=== PATIENT | female | born 1985 | race American Indian/Alaskan Native ===

== ENCOUNTER 2016-09-25 11:00 | Outpatient (CLI) | payer MEDICAID ==
[2016-09-25 11:32] VITALS: BP 117/74
[2016-09-25] MEDS ORDERED: LACTATED RINGERS 500 ML IV ONE (11:39)
[2016-09-25 12:13] LABS: Bilirubin,Urine NEG (Negative); Blood,Urine NEG (Negative); Ketones,Urine TR mg/dL (Negative); Leukocyte Esterase,Urine SM (Negative); Mucus,Urine FEW /HPF; Nitrite,Urine NEG (Negative); Protein,Urine <15 mg/dL mg/dL (Negative); Urobilinogen,Urine < 2.0 mg/dL (<2.0)
--- NOTE | 2016-09-26 13:12 | Ultrasound Report ---
OB LIMITED Technique: Transabdominal ultrasound with Doppler interrogation. Gestation: Single Position: Cephalic Amniotic Fluid: Normal SHANTANU = 8.3 cm Heart Rate: 129 BPM
--- NOTE | 2016-09-26 13:12 | Ultrasound Report ---
BIOPHYSICAL PROFILE: Technique: Transabdominal ultrasound with Doppler interrogation. 2 - breathing movements 2 - movements 2 - posture and tone 2 - Qualitative amniotic fluid volume 8 - TOTAL SCORE OF POSSIBLE 8 Heart Rate (bpm) 150
== END 2016-09-25 13:19 | disposition home or self-care (01) ==
LOC: TRG 11:00
PROVIDERS: ATTEND Obstetrics & Gynecology Gynecology
DX: O47.03 False labor before 37 completed weeks of gestation, third trimester (principal); Z3A.32 32 weeks gestation of pregnancy
CPT/HCPCS: 76815; 76819; 81001; J7120

== ENCOUNTER 2016-11-12 05:47 | Inpatient (IN) | payer MEDICAID ==
[2016-11-12] MEDS ORDERED: PEPCID IV ONE (06:00)
[2016-11-12] MEDS ORDERED: REGLAN IV ONE (06:00)
[2016-11-12] MEDS ORDERED: BICITRA PO ONE (06:00)
[2016-11-12] MEDS ORDERED: PITOCin/NS 20 UNIT/1000ML DRIP 20 UNITS/1,000 ML BAG IV SCH ×2 (06:00→12:00)
[2016-11-12] MEDS: LACTATED RINGERS 1,000 ML IV SCH ×2 (06:12→08:58)
[2016-11-12 06:44] LABS: Hematocrit 32.8 % (30.3-42.9); Hemoglobin 10.5 gm/dl (10.1-14.3); Mean Corpuscular HGB Conc 32 % (30-34); Mean Corpuscular Volume 78 fl (79-97); Platelet Count 209 K/mm3 (140-440); Red Blood Count 4.22 M/mm3 (3.65-5.03); White Blood Count 6.8 K/mm3 (4.5-11.0)
[2016-11-12 06:57] LABS: Mean Corpuscular Hemoglobin 25 pg (28-32); Red Cell Distribution Width 25.1 % (13.2-15.2)
[2016-11-12] MEDS ORDERED: ANCEF/STERILE WATER 2 GM/20 ML IV NR (07:00)
[2016-11-12] MEDS ORDERED: MORPHINE ONE (07:22)
[2016-11-12] MEDS ORDERED: NACL 0.9% 100 ML ONE ×2 (07:23→10:13)
[2016-11-12] MEDS ORDERED: NEO SYNEPHRINE ONE ×2 (07:24→10:13)
--- NOTE | 2016-11-12 07:49 | Anesthesia Consultation ---
Anesthesia Consult and Med Hx Date of service: 11/12/16 - Airway Anesthetic Teeth Evaluation: Chipped (#7) ROM Head & Neck: Adequate Mental/Hyoid Distance: Adequate Mallampati Class: Class II Intubation Access Assessment: Probably Good - Pulmonary Exam CTA: Yes - Cardiac Exam Cardiac Exam: RRR - Pre-Operative Health Status ASA Pre-Surgery Classification: ASA2 Proposed Anesthetic Plan: Spinal - Pulmonary Hx Smoking: No (denies) Hx Asthma: Yes (childhood asthma- does have an inhaler) COPD: No Hx Pneumonia: No - Cardiovascular System Hx Hypertension: No Hx Heart Murmur: Yes - Central Nervous System Hx Seizures: No Hx Back Pain: Yes Hx Psychiatric Problems: No - Gastrointestinal Hx Gastroesophageal Reflux Disease: Yes - Endocrine Hx Renal Disease: No Hx End Stage Renal Disease: No Hx Hypothyroidism: No Hx Hyperthyroidism: No - Hematic Hx Anemia: Yes Hx Sickle Cell Disease: No - Other Systems Hx Alcohol Use: No Hx Obesity: Yes
--- NOTE | 2016-11-12 07:50 | Anesthesia Day of Surgery ---
Anesthesia Day of Surgery - Day of Surgery Patient Examined: Yes Patient H&P Reviewed: Yes Patient is NPO: Yes
[2016-11-12 08:46] LABS: Anisocytosis 2+; Basophils % (Manual) 0 % (0.0-1.8); Blastocytes % (Manual) 0 %; Hypochromasia 1+
[2016-11-12 08:47] LABS: Diff Status Complete; Elliptocytes Rare; Large Platelets Few
--- NOTE | 2016-11-12 09:35 | History and Physical Report ---
History of Present Illness Date of examination: 11/12/16 Date of admission: 11/12/16 05:47 Chief complaint: She is here for a third History of present illness: A 30-year-old at 39+ weeks presents for 3rd repeat , [facility] patient. course complicated by obesity and IUGR otherwise unremarkable. 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 denies: smoking, alcohol abuse, prescription drug abuse, IV drug use - Obstetrical History Expected Date of Delivery: 11/19/16 Actual Gestation: 39 Week(s) 0 Day(s) : 3 Para: 2 Medications and Allergies Allergies Allergy/AdvReac Type Severity Reaction Status Date / Time No Known Allergies Allergy Unverified 12/23/14 07:43 Home Medications Medication Instructions Recorded Confirmed Last Taken Type Vit W-Ca,Fe,FA(<1 mg) 1 each PO QDAY #30 tablet 04/10/16 11/12/1611/04 10:00 Rx [ Vitamins] Active Meds: Active Medications Cefazolin Sodium (Ancef/Sterile Water 2 Gm/20 Ml) 2 gm IV PREOP NR Stop: 11/12/16 23:59 Lactated Ringer's (Lactated Ringers) 1,000 mls @ 2,250 mls/hr IV PREOP EMILI Stop: 11/13/16 06:27 Last Admin: 11/12/16 08:58 Dose: 2,250 mls/hr Oxytocin/Sodium Chloride (Pitocin/Ns 20 Unit/1000ml Drip) 20 units in 1,000 mls @ 0 mls/hr IV TITR EMILI PRN Reason: As Directed Review of Systems Constitutional: no fever, no chills, no weakness Cardiovascular: no chest pain, no orthopnea, no rapid/irregular heart beat, no edema, no syncope, no dyspnea on exertion, no high blood pressure Respiratory: no cough with sputum, no shortness of breath, no dyspnea on exertion Gastrointestinal: no abdominal pain, no nausea, no vomiting Genitourinary: no vaginal bleeding, no vaginal discharge, no leakage of fluid - Vital Signs Vital signs: Vital Signs Temp Pulse Resp BP 98.2 F 93 H 18 119/65 11/12/16 06:05 11/12/16 06:05 11/12/16 06:05 11/12/16 06:05 Temp Pulse Resp BP Pulse Ox 98.2 F 93 H 18 119/65 11/12/16 06:05 11/12/16 06:05 11/12/16 06:05 11/12/16 06:05 - Physical Exam Cardiovascular: Regular rate, Normal S1, Normal S2 Lungs: Positive: Clear to auscultation, Normal air movement Abdomen: Positive: normal appearance, soft. Negative: distention, tenderness, guarding, rigidity Genitourinary (Female): Positive: normal external genitalia Uterus: Positive: enlarged (EFW ~ 3500) Adnexa: both: normal Extremities: Positive: normal - Obstetrical FHR: category 1 Results Result Diagrams: 11/12/16 06:10 Abnormal lab results 11/12/16 Range/Units 06:10 MCV 78 L (79-97) fl MCH 25 L (28-32) pg RDW 25.1 H (13.2-15.2) % Seg Neuts % (Manual) 80.0 H (40.0-70.0) % All other labs normal. Assessment and Plan A: 30-year-old at 39 weeks here for repeat -Category 1 tracing P: -Has been consented -Proceed to the OR once available - Patient Problems (1) 39 weeks gestation of Current Visit: No Status: Acute (2) History of 2 sections Current Visit: Yes Status: Acute
[2016-11-12] MEDS ORDERED: ANCEF/NS 1 GM/50 ML 1 GM/50 ML BAG IV ONE (09:36)
[2016-11-12] MEDS ORDERED: LACTATED RINGERS 1,000 ML ONE (10:15)
[2016-11-12] MEDS ORDERED: NACL 0.9% IR ONE (10:20)
[2016-11-12] MEDS ORDERED: WATER FOR IRRIG STERILE IR ONE (10:20)
[2016-11-12] MEDS ORDERED: SUBLIMAZE ONE (10:59)
[2016-11-12] MEDS ORDERED: VERSED IV ONE (10:59)
[2016-11-12] MEDS ORDERED: KETALAR ONE (11:01)
[2016-11-12] MEDS ORDERED: NARCAN 0.4 MG/1 ML IV PRN ×2 (11:41→11:54)
[2016-11-12] MEDS ORDERED: TYLENOL PO PRN (11:41)
[2016-11-12] MEDS ORDERED: MILK OF MAGNESIA PO PRN (11:41)
[2016-11-12] MEDS ORDERED: SENOKOT PO PRN (11:41)
[2016-11-12] MEDS ORDERED: TUCKS PAD TP PRN (11:41)
[2016-11-12] MEDS ORDERED: ZOFRAN IV PRN ×2 (11:41→11:54)
[2016-11-12] MEDS ORDERED: ANUCORT-HC PR PRN (11:41)
[2016-11-12] MEDS ORDERED: MYLICON PO PRN (11:41)
--- NOTE | 2016-11-12 11:41 | Operative Report ---
Operative Report Operative Report: DATE: 11/12/2016 PREOPERATIVE DIAGNOSIS: 30-year-old at 39 weeks, 2 prior desires repeat, obesity, history of adhesions POSTOP DIAGNOSIS: As above NAME OF PROCEDURE: 3rd Repeat low transverse section Adhesiolysis SURGEON: MARY BREEN MD [facility] [] ANESTHESIA: Spinal EBL: 1000 mL PATHOLOGY SPECIMEN: None URINE OUTPUT: 25 mL FINDINGS: Female infant in cephalic presentation, time of delivery was 10:25, weight was 6 lbs. 1 oz. or 2765 g, Apgars 8/9, significant adhesion of the uterus to the anterior abdominal wall, omental adhesions to the uterus and anterior abdominal wall, serosal surface of the uterus anteriorly was denuded during dissection and freeing of the uterus from the anterior abdominal wall, serosal surface with significantly oozing controlled with sutures, Tisseel and Surgicel Normal uterus structurally, ovaries and tubes bilaterally DESCRIPTION OF PROCEDURE: She was taken to the operating room where she was prepped and draped in a sterile fashion, she was placed in the dorsal supine position. Pfannenstiel incision was performed through her prior incisional scar which was carried through to underlying rectus fascia which was on the midline. The fascial incision was extended laterally with use of Garcia scissors , the anterior leaf was then grasped with Kochers forceps elevated dissected sharply and bluntly off the underlying structure assumed to be the rectus. In a similar fashion inferior leaf was grasped elevated dissected sharply and bluntly off the underlying structure. Was then it was apparent this was the uterus. Examination showed uterus adhesed to the anterior abdominal wall in the lower segment area. An omental adhesions also noted to the uterus and anterior abdominal wall. Adhesiolysis was then performed freeing up the uterus from the anterior abdominal wall and from omental adhesions. A bladder blade was placed in the patient's pelvic cavity; bladder flap could not be created. A hysterotomy incision was then performed in the lower segment with clear amniotic fluid noted, hysterotomy incision was extended laterally with the use of fingers manually. in cephalic presentation was delivered in the usual manner; cord was clamped and cut was handed over to waiting nursery staff. The placenta was then delivered manually intact, the uterus was exteriorized cleared of all clots and debris. Hysterotomy incision was then closed in a running locked fashion with 0 Vicryl on a CTX; using the same suture was imbricate the initial layer. Interrupted [id number] stitches were used to obtain hemostasis. Then spent some time reapproximating the denuded serosal cover. Numerous interrupted [id number] stitches were used to control bleeding on the serosal surface. Tisseel and Surgicel were then applied over the oozing sites to control bleeding. Uterus was then returned to the patient's pelvic cavity; note that copiously irrigation was used to clear the gutters of all clots and debris from the posterior surface of the uterus prior to placement of hemostatic agents. Interceed was then applied into the pelvic cavity as a means to prevent future adhesions. The peritoneal layer could not be closed. The fascia was closed in a running fashion with 0 Vicryl and tied in the opposite side. The subcutaneous layer was irrigated and then reapproximated with interrupted figure -of-eight stitches. The skin was closed in a subcuticular manner with 4-0 Vicryl. She tolerated the procedure well lap and instrument counts were correct 2 she did receive 2 g of Ancef prior to incision she is transferred to PACU in stable condition thank you.
[2016-11-12] MEDS ORDERED: PHENERGAN PR PRN (11:54)
[2016-11-12] MEDS ORDERED: PHENERGAN PO PRN (11:54)
[2016-11-12] MEDS ORDERED: SODIUM CHLORIDE FLUSH SYRINGE 10 ML IV NR (12:00)
[2016-11-12] MEDS: DILAUDID IV PRN ×2 (12:11→12:24)
--- NOTE | 2016-11-12 12:41 | Post Anesthesia Evaluation ---
- Post Anesthesia Evaluation Patient Participated: Yes Airway Patent: Yes Stable Respiratory Function: Yes Temp > 96.8F: Yes Pain Manageable: Yes Adequeate Hydration: Yes Anesthesia Complications: No Block Receding Appropriately: Not Applicable
[2016-11-12] MEDS: PERCOCET 5/325 PO PRN ×2 (16:49→22:52)
[2016-11-12] MEDS: LANSINOH TP PRN (16:53)
[2016-11-12 18:42] LABS: Hematocrit 29.4 % (30.3-42.9); Hemoglobin 9.1 gm/dl (10.1-14.3)
[2016-11-12] MEDS: D5LR 1,000 ML IV SCH (20:11)
[2016-11-12 21:06] LABS: Hematocrit 27.1 % (30.3-42.9); Hemoglobin 8.6 gm/dl (10.1-14.3)
[2016-11-12] MEDS: MOTRIN PO PRN (21:34)
[2016-11-12 23:51] LABS: Hemoglobin 8.7 gm/dl (10.1-14.3)
[2016-11-13] MEDS: D5LR 1,000 ML IV SCH (04:26)
[2016-11-13] MEDS: PERCOCET 5/325 PO PRN ×4 (04:30→23:02)
[2016-11-13] MEDS ORDERED: BOOSTRIX IM ONE (06:15)
--- NOTE | 2016-11-13 07:15 | Progress Note ---
Assessment and Plan POD# 1 s/p 3rd rpt C-S -Doing well P: -Continue routine post op care -Anticipate discharge in 24-48 hours - Patient Problems (1) 39 weeks gestation of Current Visit: No Status: Acute (2) History of 2 sections Current Visit: Yes Status: Acute (3) S/P repeat low transverse Current Visit: No Status: Acute Subjective - Subjective Date of service: 11/13/16 Principal diagnosis: POD# 1 Interval history: Patient seen and examined, stable well. No fever or chills, no shortness of breath, has incisional pain, no nausea vomiting, no flatus, has not yet ambulated Patient reports: appetite normal, voiding normally, pain well controlled (has appropriate junito-incisional pain), no flatus, no ambulating normally, no nauseated : doing well Objective - Vital Signs Latest vital signs: Vital Signs Temp Pulse Pulse Pulse Resp BP BP 11/13/16 04:25 98.6 F 74 16 11/13/16 00:00 98.6 F 66 16 11/12/16 19:30 98.6 F 71 16 11/12/16 16:50 97.6 F 77 18 114/62 11/12/16 13:00 97.7 F 91 H 20 11/12/16 12:40 97.2 F L 18 115/50 11/12/16 12:10 97.2 F L 18 115/50 11/12/16 11:55 19 124/70 11/12/16 11:50 98 H 18 120/67 11/12/16 11:45 97.6 F 94 H 18 113/71 BP Pulse Ox 11/13/16 04:25 111/59 11/13/16 00:00 110/58 11/12/16 19:30 112/48 11/12/16 16:50 11/12/16 13:00 127/66 11/12/16 12:40 99 11/12/16 12:10 99 11/12/16 11:55 99 11/12/16 11:50 98 11/12/16 11:45 98 Intake and Output 11/12/16 11/13/16 11/13/16 22:59 06:59 14:59 Intake Total 375 1250 Output Total 700 600 Balance -325 650 Intake: IV 375 1250 D5lr 1,000 ml @ 125 mls/ 250 1250 hr IV DIRECT EMILI Rx#: [id number] PITOCin/NS 20 UNIT/1000ML 125 DRIP 20 units In 1,000 ml @ 250 mls/hr IV DIRECT EMILI Rx#:[id number] Oral 0 Output: Urine 700 600 Indwelling Catheter 700 0 Void 600 Other: Total, Intake Amount 0 Total, Output Amount 300 600 Voiding Method Indwelling Catheter # Voids Indwelling Catheter 0 0 Void 1 - Exam Abdomen: Present: normal appearance, soft, normal bowel sounds. Absent: distention, tenderness, guarding Uterus: Absent: tenderness Extremities: Present: normal Incision: Present: dressed - Labs Labs: Abnormal lab results 11/12/16 11/12/16 11/12/16 Range/Units 06:10 18:20 20:48 Hgb 9.1 L 8.6 L (10.1-14.3) gm/dl Hct 29.4 L 27.1 L (30.3-42.9) % Seg Neuts % (Manual) 80.0 H (40.0-70.0) % 11/12/16 Range/Units 23:35 Hgb 8.7 L (10.1-14.3) gm/dl Hct 26.0 L (30.3-42.9) % Seg Neuts % (Manual) (40.0-70.0) %
[2016-11-13] MEDS: LANSINOH TP PRN (09:26)
[2016-11-13] MEDS: MOTRIN PO PRN ×3 (09:26→23:03)
[2016-11-13] MEDS: PRENATAL VITAMIN PO SCH (11:10)
[2016-11-13] MEDS: FEOSOL PO SCH (11:11)
[2016-11-14] MEDS: PERCOCET 5/325 PO PRN ×3 (05:07→18:13)
[2016-11-14] MEDS: MOTRIN PO PRN ×3 (05:07→18:14)
--- NOTE | 2016-11-14 08:59 | Progress Note ---
Assessment and Plan POD# 2 s/p 3rd rpt C-S -Doing well P: -Continue routine post op care -Anticipate discharge in 24-48 hours - Patient Problems (1) 39 weeks gestation of Current Visit: No Status: Acute (2) History of 2 sections Current Visit: Yes Status: Acute (3) S/P repeat low transverse Current Visit: No Status: Acute Subjective - Subjective Date of service: 11/14/16 Principal diagnosis: POD# 2 Interval history: Patient seen and examined, stable well. No fever or chills, no shortness of breath, has incisional pain, no nausea vomiting, no flatus, has not yet ambulated Patient reports: appetite normal, voiding normally, pain well controlled, flatus , ambulating normally, no dizzy ambulation, no nauseated : doing well Objective - Vital Signs Latest vital signs: Vital Signs Temp Pulse Resp BP 11/14/16 05:07 18 11/14/16 00:45 97.7 F 96 H 20 125/55 11/13/16 23:03 18 11/13/16 23:02 18 11/13/16 17:05 97.5 F L 101 H 20 113/55 Intake and Output 11/13/16 11/14/16 11/14/16 22:59 06:59 14:59 Intake Total 480 360 Balance 480 360 Intake: Oral 480 Intake, Free Water 360 Other: Total, Intake Amount 240 Voiding Method Toilet Toilet # Voids Void 1 2 - Exam Abdomen: Present: normal appearance, soft. Absent: distention, tenderness, guarding, rigidity Uterus: Present: firm, fundal height below umbilicus
--- NOTE | 2016-11-14 09:02 | Discharge Summary ---
Providers - Providers Date of Admission: 11/12/16 05:47 Date of discharge: 11/15/16 Attending physician: LIZA RIZO Primary care physician: LIZA RIZO Hospitalization Reason for admission: section Delivery: Procedure: repeat low transverse (3rd Repeat) Procedure details: Patient was significant adhesions. Patient will oozing erosion of the serosa of the uterus Incision: dry, intact Other procedures: none complications: none Discharge diagnosis: IUP at term delivered [place] baby: female Hospital course: Uncomplicated hospital course Condition at discharge: Good Disposition: DISCHARGED TO HOME OR SELFCARE - Discharge Diagnoses (1) S/P repeat low transverse Status: Acute (2) 39 weeks gestation of Status: Acute (3) History of 2 sections Status: Acute (4) Anemia Status: Acute Qualifiers: Anemia type: A Iron deficiency anemia type: I Vitamin B12 deficiency anemia type: V Folate deficiency anemia type: F Bone marrow failure anemia type: B Hemolytic anemia type: H Other causes of anemia: acute posthemorrhagic Qualified Code(s): D62 - Acute posthemorrhagic anemia Plan - Discharge Medications Prescriptions: Ibuprofen [Motrin 600 MG tab] 600 mg PO Q8H PRN #30 tablet PRN Reason: Pain Multivitamin with Iron [Multivitamins with Iron] 1 each PO DAILY #30 tablet oxyCODONE /ACETAMINOPHEN [Percocet 5/325] 1 tab PO Q6HR PRN #30 tablet PRN Reason: Pain - Provider Discharge Summary Activity: no sex for 6 weeks, no heavy lifting 4 weeks, no strenuous exercise Diet: routine Additional instructions: [] Smoking cessation referral if applicable(refer to patient education folder for contact #) [] Refer to [facility] Booklet Call your doctor immediately for: * Fever > 100.5 * Heavy vaginal bleeding ( >1 pad per hour) * Severe persistent headache * Shortness of breath * Reddened, hot, painful area to leg or breast * Drainage or odor from incision. * Keep incision clean and dry at all times and follow doctor's instructions regarding bathing/showering - Follow up plan Follow up: LIZA RIZO MD [Primary Care Provider] - 14 Days
[2016-11-14] MEDS: FEOSOL PO SCH (10:29)
[2016-11-14] MEDS: PRENATAL VITAMIN PO SCH (10:29)
[2016-11-15] MEDS: PERCOCET 5/325 PO PRN ×3 (00:29→12:46)
[2016-11-15] MEDS: MOTRIN PO PRN ×2 (05:55→12:45)
[2016-11-15] MEDS: FEOSOL PO SCH (09:32)
[2016-11-15] MEDS: PRENATAL VITAMIN PO SCH (09:32)
[2016-11-15] MEDS ORDERED: FLUARIX QUAD 2016-2017(36 MOS+) IM ONE (12:00)
[2016-11-15 13:25] VITALS: BP 108/63
== END 2016-11-15 13:40 | disposition home or self-care (01) | DRG 766 ==
LOC: APU 05:47 → OB 12:59
PROVIDERS: ADMIT Obstetrics & Gynecology; ATTEND Obstetrics & Gynecology
PROC: 10D00Z1 Extraction of Products of Conception, Low, Open Approach (ICD-10-PCS; principal; 2016-11-12)
DX: O36.5990 Maternal care for other known or suspected poor fetal growth, unspecified trimester, not applicable or unspecified (principal); O34.211 Maternal care for low transverse scar from previous cesarean delivery; O99.02 Anemia complicating childbirth; O99.214 Obesity complicating childbirth; K21.9 Gastro-esophageal reflux disease without esophagitis; Z37.0 Single live birth; Z3A.39 39 weeks gestation of pregnancy; Z68.33 Body mass index [BMI] 33.0-33.9, adult
CPT/HCPCS: 36415; 85007; 85014; 85018; 85025; 86850; 86900; 86901; 90471; 90686; 90715; 99211; A6250; C9250; G0463; J0690; J1170; J2250; J2270; J2370; J2590; J2765; J3010; J7120; J7121

== ENCOUNTER 2017-04-14 10:03 | Emergency (ER) | payer OTHER, MEDICAID ==
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
[2017-04-14] MEDS ORDERED: MOTRIN PO ONE (14:47)
[2017-04-14 15:36] VITALS: BP 143/86
== END 2017-04-14 15:45 | disposition home or self-care (01) ==
LOC: ED 10:03
DX: S39.012A Strain of muscle, fascia and tendon of lower back, initial encounter (principal); V49.59XA Passenger injured in collision with other motor vehicles in traffic accident, initial encounter; Y93.9 Activity, unspecified; Y92.9 Unspecified place or not applicable; Y99.9 Unspecified external cause status
CPT/HCPCS: 99282